=== PATIENT | male | born 1975 | race Caucasian/White ===

== ENCOUNTER 2016-08-20 10:27 | Emergency (ER) | payer OTHER | END 2016-08-20 11:04 | disposition home or self-care (01) | LOC: FER 10:27 | DX: S61.422A Laceration with foreign body of left hand, initial encounter (principal); S61.421A Laceration with foreign body of right hand, initial encounter; F17.210 Nicotine dependence, cigarettes, uncomplicated; W60.XXXA Contact with nonvenomous plant thorns and spines and sharp leaves, initial encounter; Y92.009 Unspecified place in unspecified non-institutional (private) residence as the place of occurrence of the external cause | CPT/HCPCS: 99283 ==

== ENCOUNTER 2020-05-14 19:03 | Emergency (ER) | payer OTHER ==
[~2020-05-14 19:03] MED LIST: AZITHROMYCIN250 MG PO; BETAMETHASONE TOP; CARAFATE S500 MG/TSP PO; HYDROCODON-ACE1 EAC4 PO; MEDROL 4MG DOSEP4 MG PO; MIRALAX 238GM238 GM PO; PANTOPRAZOLE SO40 MG PO; PROTONIX40 MG PO; ROBITUSSIN DM10 ML PO; [UNRECOGNIZED DRUG - OTHER] TOP
[2020-05-14] MEDS ORDERED: ROBAXIN750 MG PO (21:51)
[2020-05-14] MEDS ORDERED: VOLTAREN100 GM TOP (21:51)
== END 2020-05-14 22:10 | disposition home or self-care (01) ==
LOC: FER 19:03
DX: S76.111A Strain of right quadriceps muscle, fascia and tendon, initial encounter (principal); Z88.5 Allergy status to narcotic agent; X58.XXXA Exposure to other specified factors, initial encounter
CPT/HCPCS: 36415; 73552; 85379

== ENCOUNTER 2020-05-31 17:08 | Emergency (ER) | payer OTHER ==
[~2020-05-31 17:08] MED LIST changes: +ROBAXIN750 MG PO; +VOLTAREN100 GM TOP
[2020-05-31 18:13] LABS: BASOPHIL 1.1 % (0-2); EOSINOPHIL 1.6 % (0-5); HCT 50.1 % (42.0-52.0); HGB 17.6 g/dl (13.2-18.0); LYMPHOCYTE 31.9 % (15-48); MCH 32.1 pg (25.0-31.0); MCHC 35.1 g/dL (32.0-36.0); MCV 91.4 fL (78.0-100.0); MONOCYTE 6.7 % (0-12); MPV 9.9 fL (6.0-9.5); NEUTROPHIL 58.5 % (41-80); NRBC 0; PLT 243 K/uL (150-400); RBC 5.48 M/uL (4.70-6.00); RDW 12.3 % (11.5-14.0); RETICULOCYTE COUNT 1.4 % (1.0-2.0); WBC 6.4 K/uL (4.0-10.5)
[2020-05-31 18:18] LABS: BILIRUBIN NEGATIVE (NEGATIVE); BLOOD NEGATIVE Ery/uL (NEGATIVE); CLARITY CLEAR (CLEAR); COLOR YELLOW (YELLOW); GLUCOSE (U) NORMAL (NORMAL); LEUKOCYTES NEGATIVE Leu/uL (NEGATIVE); NITRITE NEGATIVE (NEGATIVE); PROTEIN NEGATIVE (NEGATIVE); UROBILINOGEN 0.2 mg/dL (0.2-1.0)
[2020-05-31 18:23] LABS: AMPHETAMINES NEGATIVE (NEGATIVE); BARBITURATES NEGATIVE (NEGATIVE); ECSTASY (MDMA) NEGATIVE (NEGATIVE); MARIJUANA (THC) NEGATIVE (NEGATIVE); METHADONE NEGATIVE (NEGATIVE); OPIATES NEGATIVE (NEGATIVE); OXYCODONE NEGATIVE (NEGATIVE)
[2020-05-31 18:36] LABS: INR 1.03 (0.9-1.2); PROTHROMBIN TIME 12.8 SECONDS (11.4-13.6); PTT 26.3 SECONDS (22.2-34.7)
[2020-05-31 18:43] LABS: IRON % SATURATION 47.6 %SAT (20-50)
[2020-05-31 18:49] LABS: PRO-BNP 20 pg/mL (<125)
[2020-05-31 18:56] LABS: CORONAVIRUS 2019 SARS-COV-2 POSITIVE (NEGATIVE); INFLUENZA A NAA NEGATIVE (NEGATIVE)
[2020-05-31 19:21] LABS: ALBUMIN 3.9 g/dL (3.4-5.0); ALKALINE PHOSHATASE 100 U/L (46-116); ALT 36 U/L (16-63); AST 23 U/L (15-37); BILIRUBIN - TOTAL 0.6 mg/dL (0.2-1.0); BUN 13 mg/dL (7-18); BUN/CREAT RATIO (CALC) 17.1 RATIO; CHLORIDE 101 mmol/L (98-107); CO2 (BICARBONATE) 23 mmol/L (21-32); CREATININE 0.76 mg/dL (0.67-1.17); GLOBULIN (CALCULATION) 3.9 g/dL; GLUCOSE 96 mg/dL (74-106); LDH 165 U/L (85-227); LIPASE 82 U/L (73-393); MAGNESIUM 1.8 mg/dL (1.8-2.4); POTASSIUM 3.8 mmol/L (3.5-5.1); TOTAL PROTEIN 7.8 g/dL (6.4-8.2)
[2020-05-31 19:27] LABS: C-REACTIVE PROTEIN < 0.20 mg/dL (<=0.90)
== END 2020-05-31 23:56 | disposition home or self-care (01) ==
LOC: FER 17:08
PROVIDERS: Emergency Medicine
DX: U07.1 COVID-19 (principal); R10.84 Generalized abdominal pain; Z21 Asymptomatic human immunodeficiency virus [HIV] infection status; Z88.5 Allergy status to narcotic agent
CPT/HCPCS: 36415; 80053; 80305; 81003; 82728; 83540; 83550; 83605; 83615; 83690; 83735; 83880; 84145; 84443; 84484; 85025; 85610; 85730; 86140; 87040; 93005; G0480; J7050; Q9967; U0002

== ENCOUNTER 2020-09-15 15:16 | Emergency (ER) | payer OTHER ==
[2020-09-15 16:24] LABS: BASOPHIL 1.4 % (0-2); EOSINOPHIL 2.8 % (0-5); HCT 46.1 % (42.0-52.0); HGB 16.3 g/dl (13.2-18.0); LYMPHOCYTE 32.8 % (15-48); MCH 33.3 pg (25.0-31.0); MCHC 35.4 g/dL (32.0-36.0); MCV 94.1 fL (78.0-100.0); MONOCYTE 5.5 % (0-12); MPV 10.2 fL (6.0-9.5); NEUTROPHIL 57.3 % (41-80); NRBC 0; PLT 243 K/uL (150-400); RDW 11.7 % (11.5-14.0); WBC 6.3 K/uL (4.0-10.5)
[2020-09-15 16:51] LABS: ALBUMIN 3.6 g/dL (3.4-5.0); BILIRUBIN - TOTAL 0.2 mg/dL (0.2-1.0); BUN/CREAT RATIO (CALC) 10.3 RATIO; CREATININE 0.87 mg/dL (0.67-1.17); GLOBULIN (CALCULATION) 3.6 g/dL; POTASSIUM 4.2 mmol/L (3.5-5.1); TOTAL PROTEIN 7.2 g/dL (6.4-8.2)
[2020-09-15 17:23] LABS: BILIRUBIN NEGATIVE (NEGATIVE); BLOOD NEGATIVE Ery/uL (NEGATIVE); COLOR YELLOW (YELLOW); GLUCOSE (U) NORMAL (NORMAL); LEUKOCYTES NEGATIVE Leu/uL (NEGATIVE); NITRITE NEGATIVE (NEGATIVE); PROTEIN NEGATIVE (NEGATIVE); UROBILINOGEN 0.2 mg/dL (0.2-1.0)
[2020-09-15 17:30] LABS: CLARITY HAZY (CLEAR)
[2020-09-15] MEDS ORDERED: ROBAXIN750 MG PO (18:46)
== END 2020-09-15 19:25 | disposition home or self-care (01) ==
LOC: FER 15:16
PROVIDERS: Emergency Medicine
DX: R10.31 Right lower quadrant pain (principal); F17.210 Nicotine dependence, cigarettes, uncomplicated; Z88.5 Allergy status to narcotic agent
CPT/HCPCS: 36415; 80053; 81003; 82150; 83690; 84145; 85025; J1170; J2405; J7030

== ENCOUNTER 2020-11-03 17:21 | Emergency (ER) | payer OTHER ==
[2020-11-03 21:02] LABS: BASOPHIL 1.1 % (0-2); BILIRUBIN NEGATIVE (NEGATIVE); BLOOD NEGATIVE Ery/uL (NEGATIVE); CLARITY CLEAR (CLEAR); COLOR YELLOW (YELLOW); EOSINOPHIL 3.8 % (0-5); GLUCOSE (U) NORMAL (NORMAL); HCT 49.2 % (42.0-52.0); HGB 17.2 g/dl (13.2-18.0); LEUKOCYTES NEGATIVE Leu/uL (NEGATIVE); MCH 32.1 pg (25.0-31.0); MCV 91.8 fL (78.0-100.0); MONOCYTE 5.8 % (0-12); MPV 10.4 fL (6.0-9.5); NITRITE NEGATIVE (NEGATIVE); NRBC 0; PLT 251 K/uL (150-400); PROTEIN NEGATIVE (NEGATIVE); RBC 5.36 M/uL (4.70-6.00); RDW 11.9 % (11.5-14.0); UROBILINOGEN 0.2 mg/dL (0.2-1.0); WBC 7.4 K/uL (4.0-10.5)
[2020-11-03 21:10] LABS: URINARY RBC RARE
[2020-11-03 21:12] LABS: BILIRUBIN - TOTAL 0.3 mg/dL (0.2-1.0); BUN/CREAT RATIO (CALC) 13.1 RATIO; CREATININE 0.84 mg/dL (0.67-1.17); GLOBULIN (CALCULATION) 3.7 g/dL; POTASSIUM 4.2 mmol/L (3.5-5.1); TOTAL PROTEIN 7.7 g/dL (6.4-8.2)
[2020-11-03] MEDS ORDERED: ZOFRAN4 M1 PO (22:32)
== END 2020-11-03 22:42 | disposition home or self-care (01) ==
LOC: FER 17:21
PROVIDERS: Physician Assistant
DX: R68.89 Other general symptoms and signs (principal); R53.1 Weakness; M79.10 Myalgia, unspecified site; R51.9 Headache, unspecified; F17.210 Nicotine dependence, cigarettes, uncomplicated; Z86.16 Personal history of COVID-19; Z21 Asymptomatic human immunodeficiency virus [HIV] infection status; Z88.5 Allergy status to narcotic agent; Z20.822 Contact with and (suspected) exposure to COVID-19
CPT/HCPCS: 36415; 71045; 80053; 81001; 82550; 85025; J2405; J7030; U0002

== ENCOUNTER 2021-02-26 14:29 | Emergency (ER) | payer OTHER ==
[~2021-02-26 14:29] MED LIST changes: +ZOFRAN4 M1 PO
== END 2021-02-26 14:49 | disposition left against medical advice (07) ==
LOC: FER 14:29
DX: R07.89 Other chest pain (principal); Z53.8 Procedure and treatment not carried out for other reasons
CPT/HCPCS: 93005